=== PATIENT | male | born 1980 | race Caucasian/White ===

== ENCOUNTER 2017-06-09 08:10 | Emergency (ER) | payer OTHER ==
[2017-06-09 08:20] VITALS: BP 141/102
--- NOTE | 2017-06-09 08:29 | ED Physician Documentation ---
History of Present Illness - Stated complaint Stated Complaint: FISH BONE IN THROAT - Chief complaint Chief Complaint: General - History obtained from History obtained from: Patient - History of Present Illness Timing: Enter time (429), Today - Additonal information Additional information: 37-year-old previously healthy male was at work this morning when he ate some salmon and felt that a bone became lodged in his right throat. He denies any choking denies any difficulty with breathing he denies any suffocation. He does have a foreign body sensation when he swallows and he feels that it is just inside his throat on the right side. Review of Systems Constitutional: denies: Fever, Myalgias Eyes: denies: Decreased vision Ears: denies: Ear pain Nose: denies: Rhinorrhea / runny nose, Congestion Throat: reports: Sore throat Cardiac: denies: Chest pain / pressure Respiratory: denies: Dyspnea, Cough GI: denies: Vomiting, Diarrhea PD PAST MEDICAL HISTORY - Past Medical History Past Medical History: No - Social History Does the pt smoke?: No Smoking Status: Never smoker PD ED PE NORMAL - Vitals Vital signs reviewed: Yes (Hypertensive) - General General: Alert and oriented X 3, No acute distress, Well developed/nourished - HEENT HEENT: Atraumatic, PERRL, EOMI, Moist mucous membranes, Pharynx benign, Dentition benign, Other (I am able to see the right tonsil in its entirety and I am unable to see an obvious foreign body. There is no specific inflammation to the area. There is no foreign body on the tongue the tonsillar pillar or the soft palate.) - Neck Neck: Supple, no meningeal sign, No bony TTP - Cardiac Cardiac: RRR, No murmur - Respiratory Respiratory: No respiratory distress, Clear bilaterally - Neuro Neuro: Alert and oriented X 3, No motor deficit, No sensory deficit, Normal speech Eye Opening: Spontaneous Motor: Obeys Commands Verbal: Oriented GCS Score: 15 - Psych Psych: Normal mood, Normal affect Results - Vitals Vitals: Vital Signs - 24 hr 06/09/17 08:16 Temperature 36.1 C L Heart Rate 63 Respiratory 18 Rate Blood Pressure 141/102 H O2 Saturation 100 Oxygen O2 Source Room air PD MEDICAL DECISION MAKING - ED course Complexity details: considered differential, d/w patient, d/w family ED course: 37-year-old male with a foreign body sensation in his throat has not had any choking or trouble breathing associated with this and I am unable to see an obvious foreign body. He feels this may be a scrape somewhere and he is comfortable with evaluation here this morning.We have discussed persistence of symptoms development of a foreign body reaction and follow-up required for this being through the ENT which we will provide a telephone number for. Departure - Departure Disposition: 01 Home, Self Care Clinical Impression: Pharyngeal foreign body Qualifiers: Encounter type: initial encounter Qualified Code(s): T17.208A - Unspecified foreign body in pharynx causing other injury, initial encounter Instructions: ED Foreign Body Swallowed Adult Follow-Up: [facility] [Provider Group] [facility] [Provider Group] Comments: Today in the Emergency Department your blood pressure was elevated. This can happen from the stress of the visit itself, from a current illness or circumstance or from uncontrolled hypertension. If you take blood pressure medications take your usual mediations, have your blood pressure re-checked in an appropriate setting and follow up any elevation with your primary care doctor.
== END 2017-06-09 08:36 | disposition home or self-care (01) ==
LOC: ED 08:10
DX: T17.228A Food in pharynx causing other injury, initial encounter (principal); X58.XXXA Exposure to other specified factors, initial encounter
CPT/HCPCS: 99282

== ENCOUNTER 2017-12-01 10:00 | Emergency (ER) | payer OTHER ==
[2017-12-01] MEDS ORDERED: DEXAMETHASONE 10 MG/ML VIAL PO STA (11:05)
--- NOTE | 2017-12-01 11:13 | ED Physician Documentation ---
History of Present Illness - Stated complaint Stated Complaint: SORE THROAT - Chief complaint Chief Complaint: General - History obtained from History obtained from: Patient, Family - History of Present Illness Timing: Yesterday Pain level max: 5 Pain level now: 4 Improved by: nothing Worsened by: swallowing - Additonal information Additional information: states sore throat since yesterday. No fever. mild rhinorrhea and congestion. No cough. states hurts more to swallow. Review of Systems Constitutional: denies: Fever, Chills Respiratory: denies: Cough GI: denies: Abdominal Pain, Nausea, Vomiting, Diarrhea Skin: denies: Rash PD PAST MEDICAL HISTORY - Past Medical History Past Medical History: No - Past Surgical History Past Surgical History: No - Present Medications Home Medications: Ambulatory Orders Medication Instructions Recorded Confirmed Ibuprofen [Motrin] 800 mg PO Q8H PRN #30 tablet 12/01/17 - Allergies Allergies/Adverse Reactions: Allergies Allergy/AdvReac Type Severity Reaction Status Date / Time Penicillins Allergy Unknown Verified 12/01/17 10:09 - Social History Does the pt smoke?: No Smoking Status: Never smoker Does the pt drink ETOH?: Yes ETOH Use: Wine Does the pt have substance abuse?: No - Immunizations Immunizations are current?: Yes PD ED PE NORMAL - Vitals Vital signs reviewed: Yes - General General: Alert and oriented X 3, No acute distress, Well developed/nourished - HEENT HEENT: Ears normal, Moist mucous membranes, Other (Mild posterior pharyngeal erythema without tonsillar exudates. Uvula midline. Normal phonation. No trismus) - Neck Neck: Supple, no meningeal sign, No adenopathy - Cardiac Cardiac: RRR, No murmur - Respiratory Respiratory: No respiratory distress, Clear bilaterally - Abdomen Abdomen: Soft, Non tender, Non distended, No organomegaly - Back Back: No CVA TTP - Derm Derm: Warm and dry, No rash - Extremities Extremities: No edema - Neuro Neuro: Alert and oriented X 3 Results - Vitals Vitals: Vital Signs - 24 hr 12/01/17 12/01/17 10:08 11:38 Temperature 36.5 C 36.4 C L Heart Rate 78 81 Respiratory 20 18 Rate Blood Pressure 140/86 H 128/91 H O2 Saturation 96 96 Oxygen O2 Source Room air - Labs Labs: Laboratory Tests 12/01/17 10:10 Group A Strep Rapid Negative PD MEDICAL DECISION MAKING - ED course Complexity details: considered differential, d/w patient ED course: Patient is a 37-year-old male with what appears to be a viral pharyngitis. He is well-appearing, nontoxic. Afebrile. Rapid strep is negative. Given dexamethasone here. Will continue supportive care and follow-up with his doctor. Patient counseled regarding signs and symptoms for which I believe and urgent re-evaluation would be necessary. Patient with good understanding of and agreement to plan and is comfortable going home at this time This document was made in part using voice recognition software. While efforts are made to proofread this document, sound alike and grammatical errors may occur. - Sepsis Event Vital Signs: Vital Signs - 24 hr 12/01/17 12/01/17 10:08 11:38 Temperature 36.5 C 36.4 C L Heart Rate 78 81 Respiratory 20 18 Rate Blood Pressure 140/86 H 128/91 H O2 Saturation 96 96 Oxygen O2 Source Room air Departure - Departure Disposition: 01 Home, Self Care Clinical Impression: Viral pharyngitis Condition: Good Instructions: ED Pharyngitis Viral Follow-Up: your,doctor in 1 week [Other] Prescriptions: Ibuprofen [Motrin] 800 mg PO Q8H PRN #30 tablet PRN Reason: PAIN &/OR FEVER Comments: Your rapid strep is negative today. Return if you worsen. Drink plenty of fluids and rest. A backup throat culture was also sent, if this is positive we will call you. Discharge Date/Time: 12/01/17 11:36
[2017-12-01 11:39] VITALS: BP 128/91
== END 2017-12-01 11:36 | disposition home or self-care (01) ==
LOC: ED 10:00
DX: J02.8 Acute pharyngitis due to other specified organisms (principal); B97.89 Other viral agents as the cause of diseases classified elsewhere
CPT/HCPCS: 87070; 87430; 99283